=== PATIENT | male | born 1965 | race Caucasian/White ===

== ENCOUNTER 2021-10-23 11:58 | Day surgery (SDC) | payer OTHER ==
[2021-10-23] MEDS ORDERED: EPINEPHrine 1 MG/ML AMP ONE (12:21)
[2021-10-23] MEDS ORDERED: Lidocaine 1% PF 5 ML VIAL ONE (12:22)
[2021-10-23] MEDS ORDERED: Sodium Bicarbonate 2.5 MEQ/5 ML VIAL ONE (12:22)
[2021-10-23 12:35] VITALS: BP 132/90
[2021-10-23] MEDS ORDERED: Iopamidol 300 61% 50 ML VIAL FS ONE (13:21)
[2021-10-23 15:33] LABS: Body Fluid Source Synovial Fluid; Clarity Cloudy/Turbid (Clear); Tube # EDTA
[2021-10-23 15:34] LABS: BF Color Yellow
[2021-10-23 17:26] LABS: BF Segmented Neutrophils 29 %; Cell Count Non Hematic 63 %; Lymphocytes 8 %
== END 2021-10-23 13:45 | disposition home or self-care (01) ==
LOC: CSHRAD 11:58
PROVIDERS: ATTEND Orthopaedic Surgery
PROC: 0R9J3ZZ Drainage of Right Shoulder Joint, Percutaneous Approach (ICD-10-PCS; principal; 2021-10-23)
DX: M25.512 Pain in left shoulder (principal); K21.9 Gastro-esophageal reflux disease without esophagitis; I11.9 Hypertensive heart disease without heart failure; Z79.899 Other long term (current) drug therapy; Z88.8 Allergy status to other drugs, medicaments and biological substances; Z96.612 Presence of left artificial shoulder joint
CPT/HCPCS: 23350; 76000; 87070; 87102; 87205; 89051; J0171; Q9967

== ENCOUNTER 2022-04-07 08:23 | Outpatient (CLI) | payer MEDICAID | END 2022-04-07 08:24 | disposition home or self-care (01) | LOC: CSHWCC 08:23 | PROVIDERS: ATTEND Nurse Practitioner Family | DX: R60.0 Localized edema (principal) | CPT/HCPCS: 29581; 99203; G0463 ==

== ENCOUNTER 2022-04-14 08:13 | Outpatient (CLI) | payer MEDICAID | END 2022-04-14 08:14 | disposition home or self-care (01) | LOC: CSHWCC 08:13 | PROVIDERS: ATTEND Nurse Practitioner Family | DX: R60.0 Localized edema (principal) | CPT/HCPCS: 99213; G0463 ==

== ENCOUNTER 2022-04-28 08:00 | Outpatient (CLI) | payer MEDICAID | END 2022-04-28 08:01 | disposition home or self-care (01) | LOC: CSHWCC 08:00 | PROVIDERS: ATTEND Nurse Practitioner Family | DX: R60.0 Localized edema (principal) | CPT/HCPCS: 99213; G0463 ==

== ENCOUNTER 2022-10-19 15:29 | Outpatient (CLI) | payer MEDICAID, OTHER | END 2022-10-19 15:30 | disposition home or self-care (01) | LOC: CSHRAD 15:29 | PROVIDERS: ATTEND Neurological Surgery | DX: M47.22 Other spondylosis with radiculopathy, cervical region (principal) | CPT/HCPCS: 72052 ==

== ENCOUNTER 2023-01-21 10:42 | Outpatient (CLI) | payer OTHER | END 2023-01-21 10:43 | disposition home or self-care (01) | LOC: CSHRAD 10:42 | PROVIDERS: ATTEND Neurological Surgery | DX: M50.121 Cervical disc disorder at C4-C5 level with radiculopathy (principal); Z98.1 Arthrodesis status; M47.22 Other spondylosis with radiculopathy, cervical region | CPT/HCPCS: 72040 ==

== ENCOUNTER 2024-01-04 08:09 | Observation (INO) | payer OTHER ==
[2024-01-03 09:13] VITALS: BMI 32.8
[2024-01-04] MEDS ORDERED: Bupivacaine/Epinephrine 0.25% 30 ML VIAL ONE (08:20)
[2024-01-04] MEDS ORDERED: Dexamethasone 4 mg/ml Vial ONE (08:36)
[2024-01-04] MEDS ORDERED: fentaNYL 50 mcg/mL 1 mL Vial ONE ×5 (08:36→12:10)
[2024-01-04] MEDS ORDERED: Rocuronium Bromide 10 MG/ML (10ML VIAL) ONE ×2 (08:36→10:24)
[2024-01-04] MEDS ORDERED: PROPOFOL 20 ML ONE (08:36)
[2024-01-04] MEDS ORDERED: SUGAMMADEX SODIUM 200 MG/2 ML VIAL ONE (08:36)
[2024-01-04] MEDS ORDERED: Ondansetron PF 4 MG/2 ML Vial ONE ×2 (08:36→09:04)
[2024-01-04] MEDS ORDERED: LevoFLOXacin D5W 500 mg (100 mL) BAG ONE (08:59)
[2024-01-04] MEDS ORDERED: Famotidine/PF 20 mg/2ml Vial ONE (09:05)
[2024-01-04] MEDS ORDERED: ePHEDrine Sulfate 50 MG/10 ML VIAL ONE (09:52)
[2024-01-04] MEDS ORDERED: HYDROmorphone 0.5 MG/0.5 ML SYRINGE ONE ×3 (11:35→11:57)
[2024-01-04] MEDS ORDERED: cloNIDine 0.1 MG TAB PO PRN (11:48)
[2024-01-04] MEDS ORDERED: Dextrose 5% in Water 1,000 ML IV PRN (11:48)
[2024-01-04] MEDS ORDERED: Promethazine HCl 25 MG/ML VIAL IM PRN (11:48)
[2024-01-04] MEDS ORDERED: Dextrose 50% Abboject 50 ML SYRINGE SLOW IVP PRN (11:48)
[2024-01-04] MEDS ORDERED: Ipratropium/Albuterol 3 ML NEB NEB PRN (11:48)
[2024-01-04] MEDS ORDERED: Naloxone HCl 0.4 mg/ml Vial IVP PRN (11:48)
[2024-01-04] MEDS ORDERED: hydrALAZINE 20 MG/ML VIAL SLOW IVP PRN (11:48)
[2024-01-04] MEDS ORDERED: Glucagon 1 MG/ML KIT IM PRN (11:48)
[2024-01-04] MEDS ORDERED: PHENYLEPHRINE-NS 100 MCG/ML 10 ML SYRINGE ONE (12:41)
[2024-01-04] MEDS: Sodium Chloride 0.9% 1,000 ML IV SCH (12:43)
[2024-01-04] MEDS: oxyCODONE 5 MG TAB PO PRN (13:11)
[2024-01-04] MEDS: Acetaminophen 325 MG TAB PO SCH (13:11)
[2024-01-04] MEDS: fentaNYL 50 mcg/mL 1 mL Vial SLOW IVP PRN (15:32)
[2024-01-04] MEDS: Carvedilol 6.25 MG TAB PO SCH (17:25)
[2024-01-04] MEDS: Nortriptyline HCl 25 MG CAP PO SCH (20:33)
[2024-01-04] MEDS: clonazePAM 0.5 MG TAB PO SCH (20:34)
[2024-01-04] MEDS: Phenol 177 ML BOT PO PRN (20:55)
[2024-01-05] MEDS: Ondansetron PF 4 MG/2 ML Vial IVP PRN (06:14)
[2024-01-05] MEDS: Pantoprazole DR 40 MG TAB PO SCH (08:02)
[2024-01-05] MEDS: Escitalopram Oxalate 10 mg Tablet PO SCH (08:02)
[2024-01-05] MEDS: Calcium Carbonate 600 MG + Vit D TAB PO SCH (08:02)
[2024-01-05] MEDS: Amlodipine 10 MG TAB PO SCH (08:04)
[2024-01-05] MEDS: Enoxaparin 40 MG (0.4 mL) SYRINGE SC SCH (08:04)
[2024-01-05] MEDS: Ketorolac Tromethamine 30 MG (1 mL) VIAL IVP PRN (08:56)
[2024-01-05 10:11] VITALS: BP 121/81; TEMP 98.5
== END 2024-01-05 09:40 | disposition home or self-care (01) ==
LOC: CSHSDC 08:09 → CSHTELE 13:18
PROVIDERS: ADMIT Surgery; ATTEND Surgery
PROC: 0YQ54ZZ Repair Right Inguinal Region, Percutaneous Endoscopic Approach (ICD-10-PCS; principal; 2024-01-05)
DX: K40.91 Unilateral inguinal hernia, without obstruction or gangrene, recurrent (principal); I10 Essential (primary) hypertension; E11.9 Type 2 diabetes mellitus without complications; E66.01 Morbid (severe) obesity due to excess calories; E78.00 Pure hypercholesterolemia, unspecified; F41.1 Generalized anxiety disorder; D69.6 Thrombocytopenia, unspecified; K21.9 Gastro-esophageal reflux disease without esophagitis; K44.9 Diaphragmatic hernia without obstruction or gangrene; G47.33 Obstructive sleep apnea (adult) (pediatric); G43.909 Migraine, unspecified, not intractable, without status migrainosus; G89.29 Other chronic pain; R53.82 Chronic fatigue, unspecified; Z68.32 Body mass index [BMI] 32.0-32.9, adult; Z90.89 Acquired absence of other organs; Z98.890 Other specified postprocedural states; Z88.8 Allergy status to other drugs, medicaments and biological substances; Z88.1 Allergy status to other antibiotic agents; Z88.5 Allergy status to narcotic agent; Z79.899 Other long term (current) drug therapy
CPT/HCPCS: 94760; C1781; J1100; J1650; J1885; J1956; J2405; J2704; J3010; J3490; J7030; S2900

== ENCOUNTER 2025-01-03 10:52 | Outpatient (CLI) | payer MEDICAID | END 2025-01-03 10:53 | disposition home or self-care (01) | LOC: CSHRAD 10:52 | PROVIDERS: ATTEND Surgery | DX: R10.10 Upper abdominal pain, unspecified (principal) | CPT/HCPCS: 74019 ==